=== PATIENT | female | born 1965 | race Asian ===

== ENCOUNTER 2017-10-11 15:59 | Emergency (ER) | payer OTHER, BC ==
[~2017-10-11] VITALS: Ht 152.4 cm; Wt 91.2 kg
[2017-10-11 15:59] VITALS: BP 115/80
[~2017-10-11 15:59] MED LIST: ALBU6.7H; BIOT1TAB PO; CITA40TA11 PO; ESOM40CA PO; FLUT1DIS5; FOLI0.4T2 PO; LEVO100T PO; METF500T4 PO; MONT10TA22 PO; OLOP5DRO3 EACHEYE; OXYM22SP; SIME125C PO; SPIR100T3 PO
== END 2017-10-11 16:29 | disposition home or self-care (01) ==
LOC: ER 16:02
DX: R22.0 Localized swelling, mass and lump, head (principal); T50.995A Adverse effect of other drugs, medicaments and biological substances, initial encounter; Y92.89 Other specified places as the place of occurrence of the external cause; J45.909 Unspecified asthma, uncomplicated; K21.9 Gastro-esophageal reflux disease without esophagitis; E11.9 Type 2 diabetes mellitus without complications; M19.90 Unspecified osteoarthritis, unspecified site; Z98.890 Other specified postprocedural states; Z91.013 Allergy to seafood; Z88.8 Allergy status to other drugs, medicaments and biological substances; Z79.84 Long term (current) use of oral hypoglycemic drugs
CPT/HCPCS: 99282; A4606; Z7610